=== PATIENT | male | born 1985 | race Caucasian/White ===

== ENCOUNTER 2021-04-11 12:04 | Observation (INO) | payer OTHER, SELFPAY ==
[2021-04-11] VITALS (10 sets, daily range): BP systolic 104–176; BP diastolic 51–90; PULSE 77–127; RESP 18–26; TEMP 36.6–37.6; O2SAT 92–98; BMI 40.0; BMI 71.4; BMI 40.1
--- NOTE | 2021-04-11 12:20 | HMH.EDGENADL ---
ED Disposition Clinical Impression: Hyperglycemia Community acquired pneumonia Qualifiers: Laterality: left Lung location: unspecified part of lung Qualified Code(s): J18.9 - Pneumonia, unspecified organism Disposition: Admitted as Observation Condition on Discharge: Fair Referrals: Provider,Referral, [Primary Care Provider] - - Critical Care Critical Care Time: No Attestation: On 04/11/21, the high probability of a clinically significant, sudden or life threatening deterioration of the following system(s) required my full and direct attention, intervention and personal management. The time I documented below is in addition to time spent performing reported procedures but includes the following listed in this critical care notation. Medical Decision Making - Larry Inquiry Pt receiving controlled substance: Yes Larry was queried for this patient: Yes Risks and benefits of using a controlled substance: were not discussed with pt by me Vital Signs: 04/11/21 12:04 04/11/21 12:41 04/11/21 13:26 Temperature 97.9 F Temperature Source Oral Pulse Rate 107 H 106 H Pulse Rate [Right] 122 H Respiratory Rate 26 H 19 18 Blood Pressure 144/85 H 109/51 L Blood Pressure [Right Arm] 176/90 H Blood Pressure Mean [Right Arm] 118 Blood Pressure Source Blood Pressure Position 02 Sat by Pulse Oximetry 94 L 94 L 94 L Oxygen Delivery Method Room Air Room Air Room Air 04/11/21 15:01 04/11/21 15:54 Temperature Temperature Source Pulse Rate 115 H 121 H Pulse Rate [Right] Respiratory Rate 20 18 Blood Pressure 104/68 L 109/73 L Blood Pressure [Right Arm] Blood Pressure Mean [Right Arm] Blood Pressure Source Automatic Cuff Blood Pressure Position Sitting 02 Sat by Pulse Oximetry 92 L 93 L Oxygen Delivery Method Room Air Room Air - Lab Data Lab Results 04/11/21 12:21: WBC 11.6 H, RBC 5.38, Hgb 17.0, Hct 48.3, MCV 89.9, MCH 31.6 H, MCHC 35.1, RDW 13.2, Plt Count 268, MPV 9.0, Neut % (Auto) 62.4, Lymph % (Auto) 30.5, [place] % (Auto) 4.3, Eos % (Auto) 2.0, Baso % (Auto) 0.7, Neut # (Auto) 7.3, Lymph # (Auto) 3.6, [place] # (Auto) 0.5, Eos # (Auto) 0.2, Baso # (Auto) 0.1 04/11/21 12:21: Sodium 136, Potassium 4.2, Chloride 99, Carbon Dioxide 27, Anion Gap 14.2, BUN 13, Creatinine 1.00, Estimated Creat Clear 197, Estimated GFR 86, Est GFR ( Amer) 103, Glucose 257 H, Calcium 9.0, Total Bilirubin 1.1, AST 25, ALT 29, Alkaline Phosphatase 90, Troponin I < 0.01, Total Protein 8.4 H, Albumin 4.7, Globulin 3.7 H, Albumin/Globulin Ratio 1.3 04/11/21 12:21: Lipase 51 04/11/21 15:40: Troponin I < 0.01 04/11/21 15:41: Lactate 2.5 H 04/11/21 15:42: Chlamy pneumoniae PCR Not detected, Adenovirus (PCR) Not detected, B. pertussis DNA (PCR) Not detected, Coronavirus OC43 (PCR) Not detected, Coronavirus HKU1 (PCR) Not detected, Coronavirus 229E (PCR) Not detected, SARS-CoV-2 (PCR) Not detected, Coronavirus NL63 (PCR) Not detected, Human Metapneumovir PCR Not detected, Influenza A (H1) PCR Not detected, Influ A (H1N1/09) PCR Not detected, Influenza A (H3) PCR Not detected, Influenza Type A (PCR) Not detected, Influenza Type B (PCR) Not detected, M. pneumoniae (PCR) Not detected, Parainfluenza 1 (PCR) Not detected, Parainfluenza 2 (PCR) Not detected, Parainfluenza 3 (PCR) Not detected, Parainfluenza 4 (PCR) Not detected, RSV (PCR) Not detected, Entero/Rhino (PCR) Not detected Result diagrams: 04/11/21 12:21 04/11/21 12:21 Orders (Tests/Meds): ED MEDICATIONS Generic Name Dose Route Start Last Admin Trade Name Freq PRN Reason Stop Dose Admin Ceftriaxone Sodium 1 gm/ 50 mls @ 100 mls/hr 04/11/21 15:30 04/11/21 15:49 Sodium Chloride IV 04/25/21 15:29 100 mls/hr Q24H JENA Administration Protocol Azithromycin 500 mg/ Sodium 250 mls @ 250 mls/hr 04/11/21 15:30 04/11/21 16:41 Chloride IV 04/25/21 15:29 250 mls/hr Q24H JENA Administration Protocol Discontinued Medications Generic
--- NOTE | 2021-04-11 12:23 | CT_ITS ---
PROCEDURE INFORMATION: Exam: CTA Chest With Contrast Exam date and time: 04/11/2021 12:23 PM Age: 35 years old Clinical indication: Patient HX: Acute onset of shortness of breath. ; Additional info: Sudden onset of SOA TECHNIQUE: Imaging protocol: Computed tomographic angiography of the chest with contrast. 3D rendering (Not supervised by radiologist): MIP and/or 3D reconstructed images were created by the technologist. Radiation optimization: All CT scans at this facility use at least one of these dose optimization techniques: automated exposure control; mA and/or kV adjustment per patient size (includes targeted exams where dose is matched to clinical indication); or iterative reconstruction. Contrast material: ISOVUE 370; Contrast volume: 70 ml; Contrast route: INTRAVENOUS (IV); COMPARISON: No relevant prior studies available. FINDINGS: Pulmonary arteries: Negative for acute pulmonary embolism. Aorta: Unremarkable. No aortic aneurysm. No aortic dissection. Lungs: Patchy densities in the left infrahilar region and posterior left lung base. Likely pneumonia, recommend clinical correlation and follow-up to resolution. Pleural spaces: Unremarkable. No pneumothorax. No pleural effusion. Heart: Unremarkable. No cardiomegaly. No pericardial effusion. Lymph nodes: Unremarkable. No enlarged lymph nodes. Bones/joints: Unremarkable. No acute fracture. Soft tissues: Unremarkable. IMPRESSION: 1. Negative for acute pulmonary embolism. 2. Patchy densities in the left infrahilar region and posterior left lung base. Likely pneumonia, recommend clinical correlation and follow-up to resolution.
--- NOTE | 2021-04-11 12:25 | ECG_ITS ---
APPROVED REPORT Exam: Resting ECG HR:104 bpm ECG Measurements Heart Rate 104 AXES WI 156 P 44 QRSd 84 QRS 84 QT 314 T 26 QTc 412 Conclusion Sinus tachycardia Otherwise normal ECG Electronically signed by : Alejo Hartley, 04/14/2021 17:51:24
[2021-04-11 12:31] LABS: Basophils # 0.1 K/mm3 (0-0.2); Basophils % 0.7 % (0.1-2.0); Eosinophils # 0.2 K/mm3 (0.0-0.4); Hematocrit 48.3 % (42.0-52.0); Lymphocytes # 3.6 K/mm3 (0.7-4.5); Lymphocytes % 30.5 % (10-50); Mean Corpuscular HGB Conc 35.1 g/dL (31.8-35.4); Mean Corpuscular Hemoglobin 31.6 pg (27.0-31.2); Mean Corpuscular Volume 89.9 fl (80-94); Monocytes # 0.5 K/mm3 (0.1-1.0); Monocytes % 4.3 % (1.7-9.3); Neutrophils # 7.3 K/mm3 (1.8-7.8); Neutrophils % 62.4 % (37.0-80.0); Platelet Count 268 K/mm3 (142-424); Red Blood Count 5.38 M/mm3 (4.60-6.20); Red Cell Distribution Width 13.2 % (11.5-17.5); White Blood Count 11.6 K/mm3 (4.8-10.8)
[2021-04-11 12:42] LABS: Lipase 51 U/L (23-300)
--- NOTE | 2021-04-11 12:58 | PC.NURSE ---
lab at bedside
[2021-04-11 13:32] LABS: Alanine Aminotransferase 29 U/L (12-78); Albumin Level 4.7 g/dl (3.5-5.0); Albumin/Globulin Ratio 1.3 (1.1-1.8); Alkaline Phosphatase 90 U/L (38-126); Anion Gap 14.2 mEq/L (5-15); Aspartate Amino Transferase 25 U/L (17-59); Bilirubin,Total 1.1 mg/dl (0.2-1.3); Blood Urea Nitrogen 13 mg/dl (9-20); Carbon Dioxide 27 mmol/L (22.0-30.0); Chloride 99 mmol/L (98-107); Creatinine Clearance Estimated 197 mL/min (50-200); Estimated Glomerular Filt Rate 86 ml/min (>60); GFR (African American) 103 ML/MIN (>60); Globulin 3.7 g/dL (1.3-3.2); Glucose 257 mg/dl (74-100); Potassium 4.2 mmoL/L (3.5-5.1); Sodium 136 mmol/L (136-145); Total Protein,Serum 8.4 g/dl (6.3-8.2)
[2021-04-11 13:46] LABS: Troponin I < 0.01 ng/ml (0.00-0.034)
--- NOTE | 2021-04-11 13:52 | PC.NURSE ---
pt to rad
[2021-04-11 15:56] LABS: Adenovirus,PCR Not Detected (NotDetected); Bordetella Pertussis Not Detected (NotDetected); Chlamydophila Pneumoniae, PCR Not Detected (NotDetected); Coronavirus 19, PCR Not Detected (NotDetected); Coronavirus 229E Not Detected (NotDetected); Coronavirus NL63 Not Detected (NotDetected); Coronavirus OC43 Not Detected (NotDetected); Coronovirus HKU1,PCR Not Detected (NotDetected); Human Metapneumovirus Not Detected (NotDetected); Influenza A, PCR Not Detected (NotDetected); Influenza AH1, 2009 Not Detected (NotDetected); Influenza AH1, PCR Not Detected (NotDetected); Influenza AH3,PCR Not Detected (NotDetected); Influenza B, PCR Not Detected (NotDetected); Mycoplasma Pneumoniae, PCR Not Detected (NotDetected); Parainfluenza 1, PCR Not Detected (NotDetected); Parainfluenza 2, PCR Not Detected (NotDetected); Parainfluenza 3, PCR Not Detected (NotDetected); Parainfluenza 4, PCR Not Detected (NotDetected); Respiratory Syncytial Virus Not Detected (NotDetected); Rhinovirus/Enterovirus Not Detected (NotDetected)
[2021-04-11 16:12] LABS: Lactic Acid 2.5 mmol/L (0.7-2.1)
[2021-04-11 16:19] LABS: Troponin I < 0.01 ng/ml (0.00-0.034)
--- NOTE | 2021-04-11 17:16 | PC.NURSE ---
PATIENT LEFT WITH EMS TO [facility] FOR A CT OF HIS ABDOMEN. PT WILL RETURN BACK TO [facility] ED
--- NOTE | 2021-04-11 18:54 | PC.NURSE ---
Pt returned from [facility] and is back in his room.
--- NOTE | 2021-04-11 18:58 | PC.NURSE ---
PATIENT RETURNED FROM [facility]IA EMS FROM CT SCAN
[2021-04-11 19:50] LABS: Reflex Lactic Add Lactic Reflex
--- NOTE | 2021-04-11 20:39 | PC.NURSE ---
patient up to floor @ 20:24 .
[2021-04-11 20:57] LABS: Troponin I < 0.01 ng/ml (0.00-0.034)
[2021-04-11 23:18] LABS: Lactic Acid 2.1 mmol/L (0.7-2.1)
[2021-04-12] VITALS (8 sets, daily range): BP systolic 120–152; BP diastolic 60–90; PULSE 84–132; RESP 16–24; TEMP 37.2–37.7; O2SAT 90–95; BMI 40.1; BMI 40.3
[2021-04-12 05:51] LABS: POC Glucose,Bedside 255 (70-110)
--- NOTE | 2021-04-12 05:56 | PC.NURSE ---
A/O x4. pt dose not complain of SOB or difficulty breathing. was paged and ordered a sepsis bolus to be given due to tachycardia and lactic 2.1, and he would reassess during morning rounds. Total of 4 L has been administered. Lungs sound clear, stats are 98% on room air. Pt has rested well this shift. Able to make needs known to staff, call light within reach.
--- NOTE | 2021-04-12 07:11 | HMH.PHAVTE ---
[facility] Pharmacy VTE Monitoring - Patient Demographics Admission date: 04/11/21 Report Date: 04/12/21 Time: 07:11 Allergies/Adverse Reactions: Patient Allergies No Known Allergies Allergy (Verified 04/11/21 12:23) Height: 1.83 m Weight: 134.521 kg Patient Problems: Current Active Problems Community acquired pneumonia (Acute) Hyperglycemia (Acute) - VTE Risk Labs: VTE Related Lab Results Hgb 17.0 g/dL (14.1-18.0) 04/11/21 12:21 Hct 48.3 % (42.0-52.0) 04/11/21 12:21 Plt Count 268 K/mm3 (142-424) 04/11/21 12:21 BUN 13 mg/dl (9-20) 04/11/21 12:21 Creatinine 1.00 mg/dl (0.66-1.25) 04/11/21 12:21 Estimated Creat Clear 197 mL/min (50-200) 04/11/21 12:21 - Prophylaxis VTE Prophylaxis Ordered?: Yes Types of VTE Prophylaxis: TEDS Knee High Location of Applied Device: Bilateral Lower Extremeties
--- NOTE | 2021-04-12 08:48 | HMH.HP ---
*Admission Date: 04/11/21 <PhanBrookeSadaf 04/12/21 09:00> *Chief complaint: Shortness of breath <Sadaf Chisholm 04/12/21 09:00> *History of present illness: Mr. Weir is a 35-year-old male who is relatively healthy. He has had hypertension in the past but takes no medication at all at present. Sudden onset of shortness of breath yesterday and presented to [facility] emergency room. He describes intermittent sharp chest pains for the last few weeks that did not last but a few seconds. He is not experiencing this at present but it does hurt currently to take a deep breath and sometimes with movement. He is most comfortable lying on his right side. With evaluation in the emergency room he had a CT of the chest which showed no acute pulmonary embolism. He had bilateral densities in the left infrahilar region and posterior left lung base. Laboratory data showed a white blood cell count 11,600. Blood chemistries show normal electrolytes with a BUN of 13 and creatinine of 1. Blood sugar is 257. Troponin I's were 0.01. Lactate was elevated at 4 and 1 later repeated was 2.1. He treated for sepsis and currently is receiving IV resuscitation. He has had a low-grade fever he has been tachycardic with a heart rate 132 and is 120 this a.m. he has received greater than 5000 mL of IV fluids since admission. Currently he feels he is breathing better. O2 sats are 93% on room air. He states he did sleep some. He did not fill like eating much this a.m. <Sadaf Chisholm 04/12/21 09:00> [facility] History Medical History: Reports:: Diabetes Mellitus Type 2, Hypertension Denies:: Cancer, Internal Pacemaker, MRSA <Sadaf Chisholm 04/12/21 09:00> *Have you ever received a pneumonia vaccine?: No <Sadaf Chisholm 04/12/21 09:00> *Have you received a flu vaccine this season?: No <Sadaf Chisholm 04/12/21 09:00> Other Surgeries: Yes: No Previous Surgery. No: Pacemaker <Sadaf Chisholm 04/12/21 09:00> Amputation: No <Sadaf Chisholm 04/12/21 09:00> - *Social History Last grade of school completed: Some college <ChisholmSadaf 04/12/21 09:00> Smoking Status: Never smoker <ChisholmSadaf 04/12/21 09:00> Alcohol Intake: never <ChisholmSadaf 04/12/21 09:00> *Occupational Status:: employed <Chisholm,Sadaf 04/12/21 09:00> Housing: house <Chisholm,Sadaf 04/12/21 09:00> Household Members: spouse <ChisholmSadaf 04/12/21 09:00> *Travel in the last 8 weeks: None <PhanSadaf 04/12/21 09:00> Family Hx:: Cancer, Diabetes, Heart Attack, Hypertension, Kidney Disease, Stroke <PhanSadaf 04/12/21 09:00> Review of Systems - Constitutional Reports fever(s) <PhanSadaf 04/12/21 09:00> - Eyes Denies change in vision <PhanSadaf 04/12/21 09:00> - ENT Denies dizziness, Denies ear discharge, Denies ear pain, Denies headache(s), Denies sore throat <PhanSadaf 04/12/21 09:00> - *Cardiovascular Reports chest pain, Reports chest pain with activity, Reports shortness of breath, Denies irregular heart rhythm, Denies leg swelling <PhanSadaf 04/12/21 09:00> - *Respiratory Reports shortness of breath, Reports pain on inspiration, Denies chest congestion, Denies cough, Denies coughing up blood <Sadaf Chisholm 04/12/21 09:00> - *Gastrointestinal Reports nausea, Denies abdominal pain, Denies constipation, Denies loose stools, Denies vomiting <PhanSadaf 04/12/21 09:00> - *Genitourinary Denies difficulty urinating <Sadaf Chisholm 04/12/21 09:00> - *Musculoskeletal Denies abnormal walking <Sadaf Chisholm 04/12/21 09:00> - *Neurologic Denies abnormal speech, Denies seizure-like activity, Denies unsteadiness, Denies dizziness, Denies lack of coordination <Sadaf Chisholm - 04/12/21 09:00> Meds Home Medications Medication Instructions Recorded Confirmed Type No Known Home Medications 04/11/21 04/11/21 History <Jax Herron - 04/12/21 09:10> Allergies Allergy/AdvR
[2021-04-12 16:12] LABS: POC Glucose,Bedside 221 (70-110)
[2021-04-12 16:12] LABS: POC Glucose,Bedside 280 (70-110)
[2021-04-12 17:48] LABS: POC Glucose,Bedside 225 (70-110)
--- NOTE | 2021-04-12 18:07 | PC.NURSE ---
PT IS RESTING IN BED ON HIS RT SIDE. RECEIVED TYLENOL FOR DISCOMFORT IN HIS LT SIDE WHICH PT STATED REALLY HELPED. PT HAS BEEN AMBULATING TO THE BATHROOM INDEPENDENTLY. TOLERATED SITTING UP IN THE CHAIR FOR A FEW HOURS THIS MORNING. HR HAS BEEN ELEVATED IN THE 120'S T/O THE SHIFT. PT HAS REQUIRED INSULIN FOR EVERY MEAL. ACCORDING TO PT HE IS TYPE 2 DIABETIC BUT STATES HE DOES NOT TAKE ANYTHING AT HOME FOR HIS DIABETES AND HAS NOT FOLLOWED UP WITH A PHYSICIAN FOR SOMETIME. LUNG SOUNDS DIMINISHED. ABDOMEN SOFT WITH ACTIVE BOWEL SOUNDS. NO BOWEL MOVEMENT THIS SHIFT. ROOM AIR SATURATION HAS MAINTAINED 92-95% T/O THE SHIFT. WILL CONTINUE TO MONITOR.
[2021-04-12 20:25] LABS: POC Glucose,Bedside 238 (70-110)
[2021-04-13] VITALS (11 sets, daily range): BP systolic 119–139; BP diastolic 61–79; PULSE 110–138; RESP 18–24; TEMP 37.2–39.5; O2SAT 88–94; BMI 40.2
--- NOTE | 2021-04-13 04:29 | PC.NURSE ---
pt is independent with ambulation. pt had a temp 103 and prn med given was 99.6 on recheck. pt has not stated any pain this shift. call light in reach. will continue to monitor
[2021-04-13 05:57] LABS: POC Glucose,Bedside 206 (70-110)
[2021-04-13 06:22] LABS: Basophils % 0.3 % (0.1-2.0); Eosinophils # 0.1 K/mm3 (0.0-0.4); Eosinophils % 0.7 % (0.1-12.0); Hematocrit 38.7 % (42.0-52.0); Hemoglobin 13.9 g/dL (14.1-18.0); Lymphocytes # 1.8 K/mm3 (0.7-4.5); Mean Corpuscular HGB Conc 35.8 g/dL (31.8-35.4); Mean Corpuscular Hemoglobin 32.1 pg (27.0-31.2); Mean Corpuscular Volume 89.7 fl (80-94); Mean Platelet Volume 8.8 fl (7.4-10.4); Monocytes # 0.7 K/mm3 (0.1-1.0); Monocytes % 5.4 % (1.7-9.3); Neutrophils # 10.9 K/mm3 (1.8-7.8); Neutrophils % 80.6 % (37.0-80.0); Platelet Count 209 K/mm3 (142-424); Red Blood Count 4.32 M/mm3 (4.60-6.20); Red Cell Distribution Width 13.3 % (11.5-17.5); White Blood Count 13.5 K/mm3 (4.8-10.8)
[2021-04-13 06:25] LABS: Chloride 99 mmol/L (98-107)
[2021-04-13 06:26] LABS: Potassium 4.1 mmoL/L (3.5-5.1); Sodium 134 mmol/L (136-145)
[2021-04-13 06:29] LABS: Anion Gap 13.1 mEq/L (5-15); Blood Urea Nitrogen 7 mg/dl (9-20); Calcium 8.9 mg/dl (8.4-10.2); Carbon Dioxide 26 mmol/L (22.0-30.0); Creatinine Clearance Estimated 283 mL/min (50-200); Estimated Glomerular Filt Rate 129 ml/min (>60); GFR (African American) 156 ML/MIN (>60); Glucose 214 mg/dl (74-100)
--- NOTE | 2021-04-13 08:16 | HMH.ACPN2 ---
<Sadaf Chisholm - Last Filed: 04/13/21 09:07> Internal Medicine - PN: Subj *Date: 04/13/21 *Time: 09:07 Interval history: Patient states he had a rough night last night. He slept at intervals. Temperature went up to 103. It is now 99.8. He is short of breath with any exertion. He has had no cough. He feels duo nebs to helps. He said up in a chair yesterday. With any movement he has discomfort in the left side of his lower chest. Tylenol helps. He is eating less. He is voiding QS. Laboratory data this morning show white blood cell count of 13,500 with a hemoglobin of 13.9 hematocrit of 38.7. Chemistries show sodium of 134 and potassium of 4.1. Blood sugars remain elevated requiring insulin coverage. Blood culture results are still pending. Exam Vital signs and Labs for Last 24 Hours: Temp Pulse Resp BP Pulse Ox 99.8 F H 118 H 24 139/79 90 L 04/13/21 04:34 04/13/21 06:09 04/13/21 04:34 04/13/21 04:34 04/13/21 04:34 Laboratory Results - last 24 hr 04/11/21 20:39: POC Glucose 221 H 04/12/21 11:37: POC Glucose 280 H 04/12/21 16:12: POC Glucose 225 H 04/12/21 20:18: POC Glucose 238 H 04/13/21 05:30: WBC 13.5 H, RBC 4.32 L, Hgb 13.9 L, Hct 38.7 L, MCV 89.7, MCH 32.1 H, MCHC 35.8 H, RDW 13.3, Plt Count 209, MPV 8.8, Neut % (Auto) 80.6 H, Lymph % (Auto) 13.0, Webb % (Auto) 5.4, Eos % (Auto) 0.7, Baso % (Auto) 0.3, Neut # (Auto) 10.9 H, Lymph # (Auto) 1.8, Webb # (Auto) 0.7, Eos # (Auto) 0.1, Baso # (Auto) 0.0 04/13/21 05:30: Sodium 134 L, Potassium 4.1, Chloride 99, Carbon Dioxide 26, Anion Gap 13.1, BUN 7 L D, Creatinine 0.70 D, Estimated Creat Clear 283, Estimated GFR 129, Est GFR ( Amer) 156 D, Glucose 214 H, Calcium 8.9 04/13/21 05:49: POC Glucose 206 H I & O for Last 24 hours: Intake & Output 04/10/21 04/11/21 04/12/21 04/13/21 11:59 11:59 11:59 11:59 Intake Total 780 / 780 780 / 780 Balance 780 / 780 780 / 780 Weight 297 lb 9.985 oz 297 lb - Constitutional no acute distress - *Routine Respiratory Exam Present: diminished air movement (In bilateral bases) - *Routine Cardiovascular Exam Present: RRR, tachycardia (Heart rate is 130 this morning) - *Routine Abdominal Exam Present: soft, normoactive bowel sounds. Absent: tenderness, distended - *Routine Extremities Exam Present: pulses intact. Absent: edema, calf tenderness - *Routine Neurological Exam Present: alert, oriented X3 Assessment and Plan (1) Community acquired pneumonia Status: Acute Qualifiers: Laterality: left Lung location: unspecified part of lung Qualified Code(s): J18.9 - Pneumonia, unspecified organism Category: Medical Code(s): J18.9 - Pneumonia, unspecified organism (2) DM2 (diabetes mellitus, type 2) Status: Acute Category: Medical Code(s): E11.9 - Type 2 diabetes mellitus without complications (3) HTN (hypertension) Status: Acute Category: Medical Code(s): I10 - Essential (primary) hypertension (4) Non morbid obesity Status: Acute Category: Medical Code(s): E66.9 - Obesity, unspecified (5) Non-compliance Status: Acute Category: Medical Code(s): Z91.19 - Patient's noncompliance with other medical treatment and regimen (6) Hyperglycemia Status: Acute Category: Medical Code(s): R73.9 - Hyperglycemia, unspecified - Assessment and plan all Dx Assessment and Plan for all problems:: Patient continues with Rocephin and Zithromax and duo nebs. Will consult pulmonology. <Jax Herron - Last Filed: 04/13/21 09:18> Internal Medicine - PN: Subj *Date: 04/13/21 *Time: 09:17 Exam Vital signs and Labs for Last 24 Hours: Temp Pulse Resp BP Pulse Ox 98.9 F 127 H 24 126/79 91 L 04/13/21 08:00 04/13/21 08:00 04/13/21 08:00 04/13/21 08:00 04/13/21 08:00 Laboratory Results - last 24 hr 04/11/21 20:39: POC Glucose 221 H 04/12/21 11:37: POC Glucose 280 H 04/12/21 16:12: POC Glucose 225 H 04/12/21 20:18: POC Glucose
--- NOTE | 2021-04-13 09:18 | XR_ITS ---
PROCEDURE: XR CHEST 2V CLINICAL HISTORY: f/u pneumonia COMPARISON: CT CT ANGIO CHEST from 04/11/2021 FINDINGS: Heart size normal. Probable tiny right pleural effusion. No pneumothorax. Left basilar consolidation persists with some patchy right basilar atelectasis versus less likely infiltrate. Repeat chest CT in 1 month recommended to exclude any underlying mass. No acute bony abnormalities. IMPRESSION: Persistent left basilar consolidation may represent some residual pneumonia but repeat chest CT in 1 month recommended to exclude any underlying mass. Some patchy right basilar atelectasis versus less likely infiltrate. Probable tiny right pleural effusion. Dictated by: Josh Nayak MD 04/13/2021 14:19 Josh Nayak MD in [place] 04/13/2021 14:19
[2021-04-13 10:59] LABS: POC Glucose,Bedside 227 (70-110)
--- NOTE | 2021-04-13 15:50 | PC.NURSE ---
SPUTUM INDUCTION:PT GIVEN SALINE NEB AND ENCOURGED TO COUGH. INSTRUCTED TO CONTINUE TO TRY TO GET SAMPLE IF POSSIBLE. CUP LEFT AT BEDSIDE.
--- NOTE | 2021-04-13 16:43 | P.CONS_ITS ---
*Admission Date: 04/11/21 [facility] History Medical History: Reports:: Diabetes Mellitus Type 2, Hypertension Denies:: Cancer, Internal Pacemaker, MRSA *Have you ever received a pneumonia vaccine?: No *Have you received a flu vaccine this season?: No Other Surgeries: Yes: No Previous Surgery. No: Pacemaker Amputation: No - *Social History Last grade of school completed: Some college Smoking Status: Never smoker Alcohol Intake: never *Occupational Status:: employed Housing: house Household Members: spouse *Travel in the last 8 weeks: None Family Hx:: Cancer, Diabetes, Heart Attack, Hypertension, Kidney Disease, Stroke Meds Home Medications Medication Instructions Recorded Confirmed Type No Known Home Medications 04/11/21 04/11/21 History Allergies Allergy/AdvReac Type Severity Reaction Status Date / Time No Known Allergies Allergy Verified 04/11/21 12:23 Internal Medicine - CN: Reslt - Labs CBC & Chem 7: 04/13/21 05:30 04/13/21 05:30 Labs: Short CBC 04/13/21 Range/Units 05:30 WBC 13.5 H (4.8-10.8) K/mm3 Hgb 13.9 L (14.1-18.0) g/dL Hct 38.7 L (42.0-52.0) % Plt Count 209 (142-424) K/mm3 BMP 04/13/21 05:30 Sodium 134 L Potassium 4.1 Chloride 99 Carbon Dioxide 26 BUN 7 L D Creatinine 0.70 D Glucose 214 H Calcium 8.9 Assessment and Plan (1) Community acquired pneumonia Status: Acute Qualifiers: Laterality: left Lung location: unspecified part of lung Qualified Code(s): J18.9 - Pneumonia, unspecified organism Category: Medical Code(s): J18.9 - Pneumonia, unspecified organism (2) DM2 (diabetes mellitus, type 2) Status: Acute Category: Medical Code(s): E11.9 - Type 2 diabetes mellitus without complications (3) HTN (hypertension) Status: Acute Category: Medical Code(s): I10 - Essential (primary) hypertension (4) Non morbid obesity Status: Acute Category: Medical Code(s): E66.9 - Obesity, unspecified (5) Non-compliance Status: Acute Category: Medical Code(s): Z91.19 - Patient's noncompliance with other medical treatment and regimen (6) Hyperglycemia Status: Acute Category: Medical Code(s): R73.9 - Hyperglycemia, unspecified - Assessment and plan all Dx Assessment and Plan for all problems:: #Community-acquired pneumonia: CTA showed no evidence of pulmonary embolism, however showed bilateral airspace disease with interstitial infiltrates. Comprehensive respiratory viral panel resulted negative. Hemodynamically stable. Lactate normalized. Neutrophilic leukocytosis. Patient was initially ceftriaxone azithromycin along with DuoNebs every 6 hours scheduled. Blood cultures pending. Plan: - -Continue ceftriaxone meds for community-acquired pneumonia. -Follow urine strep pneumonia & Legionella antigens
[2021-04-13 17:09] LABS: C-Reactive Protein 161.5 mg/L (0-4)
--- NOTE | 2021-04-13 17:44 | HMH.PULMCON ---
*Admission Date: 04/11/21 *Reason for consult:: Acute hypoxic respiratory failure, pleuritic chest pain *History of present illness: Mr. Millard is 35-year-old male never smoker no prior respiratory complaints presented to the hospital complaining of epigastric pain for the last week gradually getting worse. Pain worsens with deep inspiration and coughing and relieved by taking rest. Patient also complains of acid reflux disease. Denies any families of autoimmune disorders. ILD review of systems negative. [facility] History Medical History: Reports:: Diabetes Mellitus Type 2, Hypertension Denies:: Cancer, Internal Pacemaker, MRSA *Have you ever received a pneumonia vaccine?: No *Have you received a flu vaccine this season?: No Other Surgeries: Yes: No Previous Surgery. No: Pacemaker Amputation: No - *Social History Last grade of school completed: Some college Smoking Status: Never smoker Alcohol Intake: never *Occupational Status:: employed Housing: house Household Members: spouse *Travel in the last 8 weeks: None Family Hx:: Cancer, Diabetes, Heart Attack, Hypertension, Kidney Disease, Stroke ROS - Cons Denies chills, Denies fatigue, Denies fever(s) - ENT Denies difficulty swallowing - Card Reports shortness of breath, Reports shortness of breath with activity - Resp Respiratory: Denies chest congestion, Reports dyspnea on exertion, Denies excessive phlegm production, Denies coughing up blood, Reports pain on inspiration, Reports pain with cough, Reports pain with breathing, Denies snoring, Denies stridor, Denies wheezing - GI Gastrointestingal: Reports: dyspepsia - [place] Musculoskeletal: Reports system reviewed and no additional complaints, except as docu Meds Home Medications Medication Instructions Recorded Confirmed Type No Known Home Medications 04/11/21 04/11/21 History Allergies Allergy/AdvReac Type Severity Reaction Status Date / Time No Known Allergies Allergy Verified 04/11/21 12:23 Exam - Constitutional Constitutional:: Present: no acute distress, comfortable - HENMT Exam HENMT: Present: normocephalic, atraumatic - Eye Exam Eyes:: Present: normal appearance both eyes and related structures - Neck Exam Neck:: Present: normal visual inspection - Respiratory Exam Respiratory:: Present: able to speak in complete sentences, no respiratory distress, normal respiratory effort. Absent: crackles, wheezing, pleural rub - Cardiovascular Exam Cardiac:: Present: S1, S2 - GI Exam GI:: Present: soft - Skin Exam Skin: Present: warm, no rash, dry - Neurological Exam Neurological: Present: alert, awake, normal cognition - Extremities Exam Extremities: Present: no cyanosis, no clubbing, no edema Internal Medicine - CN: Reslt - Labs CBC & Chem 7: 04/13/21 05:30 04/13/21 05:30 Labs: Short CBC 04/13/21 Range/Units 05:30 WBC 13.5 H (4.8-10.8) K/mm3 Hgb 13.9 L (14.1-18.0) g/dL Hct 38.7 L (42.0-52.0) % Plt Count 209 (142-424) K/mm3 BMP 04/13/21 05:30 Sodium 134 L Potassium 4.1 Chloride 99 Carbon Dioxide 26 BUN 7 L D Creatinine 0.70 D Glucose 214 H Calcium 8.9 Assessment and Plan (1) Community acquired pneumonia Status: Acute Qualifiers: Laterality: left Lung location: unspecified part of lung Qualified Code(s): J18.9 - Pneumonia, unspecified organism Category: Medical Code(s): J18.9 - Pneumonia, unspecified organism (2) DM2 (diabetes mellitus, type 2) Status: Acute Category: Medical Code(s): E11.9 - Type 2 diabetes mellitus without complications (3) HTN (hypertension) Status: Acute Category: Medical Code(s): I10 - Essential (primary) hypertension (4) Non morbid obesity Status: Acute Category: Medical Code(s): E66.9 - Obesity, unspecified (5) Non-compliance Status: Acute Category: Medical Code(s): Z91.19 - Patient's noncompliance with other medical treatment and regimen
[2021-04-13 18:46] LABS: C-Reactive Protein 153.4 mg/L (0-4)
[2021-04-13 20:35] LABS: POC Glucose,Bedside 225 (70-110)
[2021-04-13 20:35] LABS: POC Glucose,Bedside 268 (70-110)
[2021-04-14] VITALS: BP 130/79; PULSE 128; RESP 18; TEMP 37.9; O2SAT 94
--- NOTE | 2021-04-14 03:42 | PC.NURSE ---
Patient has been alert and oriented, he is independent. Lung sounds are still diminished and sputum has not been successful in collecting during shift. He has remained tachycardic during the shift, has ran low grade fevers throughout the night, 100.2 and 100.3. Patient requested Tylenol twice during those times. Patient had complaints of not feeling well around 0130, patient's vitals remained at baseline for him, temperature had decreased to 99.6 at that time, he had no further complaints upon followup. Call light is within reach, bed in lowest position.
[2021-04-14 04:00] VITALS: BP 141/86; PULSE 118; RESP 17; TEMP 37.5; O2SAT 94
[2021-04-14 05:08] VITALS: BMI 39.1
[2021-04-14 06:27] LABS: Basophils % 0.3 % (0.1-2.0); Eosinophils # 0.2 K/mm3 (0.0-0.4); Eosinophils % 1.9 % (0.1-12.0); Hematocrit 37.7 % (42.0-52.0); Hemoglobin 13.2 g/dL (14.1-18.0); Lymphocytes # 1.7 K/mm3 (0.7-4.5); Lymphocytes % 14.9 % (10-50); Mean Corpuscular HGB Conc 35.1 g/dL (31.8-35.4); Mean Corpuscular Hemoglobin 31.9 pg (27.0-31.2); Mean Platelet Volume 8.4 fl (7.4-10.4); Monocytes # 0.7 K/mm3 (0.1-1.0); Monocytes % 6.4 % (1.7-9.3); Neutrophils # 8.5 K/mm3 (1.8-7.8); Neutrophils % 76.5 % (37.0-80.0); Platelet Count 228 K/mm3 (142-424); Red Blood Count 4.15 M/mm3 (4.60-6.20); Red Cell Distribution Width 13.5 % (11.5-17.5); White Blood Count 11.1 K/mm3 (4.8-10.8)
[2021-04-14 06:31] LABS: Chloride 100 mmol/L (98-107)
[2021-04-14 06:32] LABS: Potassium 4.1 mmoL/L (3.5-5.1); Sodium 137 mmol/L (136-145)
[2021-04-14 06:34] LABS: Blood Urea Nitrogen 8 mg/dl (9-20)
[2021-04-14 06:35] LABS: Anion Gap 17.1 mEq/L (5-15); Calcium 8.9 mg/dl (8.4-10.2); Carbon Dioxide 24 mmol/L (22.0-30.0); Creatinine Clearance Estimated 276 mL/min (50-200); Estimated Glomerular Filt Rate 129 ml/min (>60); GFR (African American) 156 ML/MIN (>60); Glucose 216 mg/dl (74-100)
[2021-04-14 06:40] VITALS: PULSE 133; PULSE 134; O2SAT 90
[2021-04-14 08:00] VITALS: BP 162/81; PULSE 133; RESP 18; TEMP 37.3; O2SAT 94
--- NOTE | 2021-04-14 08:11 | HMH.ACPN2 ---
<Breanna Blevins - Last Filed: 04/14/21 08:11> Internal Medicine - PN: Subj *Date: 04/14/21 *Time: 08:11 Interval history: Patient states he feels about the same today. He gets short of breath with any exertion. He states he still cannot take a deep breath. He slept off and on throughout the night and is trying to eat some breakfast this morning. Exam Vital signs and Labs for Last 24 Hours: Temp Pulse Resp BP Pulse Ox 99.1 F 133 H 18 162/81 H 94 L 04/14/21 08:00 04/14/21 08:00 04/14/21 08:00 04/14/21 08:00 04/14/21 08:00 Laboratory Results - last 24 hr 04/13/21 05:30: C-Reactive Protein 161.5 H 04/13/21 10:52: POC Glucose 227 H 04/13/21 17:14: POC Glucose 268 H 04/13/21 18:20: C-Reactive Protein 153.4 H 04/13/21 20:25: POC Glucose 225 H 04/14/21 06:08: WBC 11.1 H, RBC 4.15 L, Hgb 13.2 L, Hct 37.7 L, MCV 91.0, MCH 31.9 H, MCHC 35.1, RDW 13.5, Plt Count 228, MPV 8.4, Neut % (Auto) 76.5, Lymph % (Auto) 14.9, [place] % (Auto) 6.4, Eos % (Auto) 1.9, Baso % (Auto) 0.3, Neut # (Auto) 8.5 H, Lymph # (Auto) 1.7, [place] # (Auto) 0.7, Eos # (Auto) 0.2, Baso # (Auto) 0.0 04/14/21 06:08: Sodium 137, Potassium 4.1, Chloride 100, Carbon Dioxide 24, Anion Gap 17.1 H, BUN 8 L, Creatinine 0.70, Estimated Creat Clear 276, Estimated GFR 129, Est GFR ( Amer) 156, Glucose 216 H, Calcium 8.9 I & O for Last 24 hours: Intake & Output 04/11/21 04/12/21 04/13/21 04/14/21 11:59 11:59 11:59 11:59 Intake Total 780 / 780 1500 / 1500 850 / 850 Output Total 300 / 300 400 / 400 Balance 780 / 780 1200 / 1200 450 / 450 Weight 297 lb 9.985 oz 297 lb 289 lb 2 oz Microbiology Reports for the Last 24 Hours: Microbiology 04/11/21 15:50 Blood Blood Culture - Preliminary NO GROWTH AFTER 48 HOURS 04/11/21 15:35 Blood Blood Culture - Preliminary NO GROWTH AFTER 48 HOURS - Constitutional no acute distress - *Routine Respiratory Exam Present: CTA bilaterally - *Routine Cardiovascular Exam Present: tachycardia - *Routine Abdominal Exam Present: soft, normoactive bowel sounds. Absent: tenderness - *Routine Extremities Exam Absent: cyanosis, clubbing, edema - *Routine Skin Exam Present: warm. Absent: rash - *Routine Neurological Exam Present: alert, oriented X3 Assessment and Plan (1) Community acquired pneumonia Status: Acute Qualifiers: Laterality: left Lung location: unspecified part of lung Qualified Code(s): J18.9 - Pneumonia, unspecified organism Category: Medical Code(s): J18.9 - Pneumonia, unspecified organism (2) DM2 (diabetes mellitus, type 2) Status: Acute Category: Medical Code(s): E11.9 - Type 2 diabetes mellitus without complications (3) HTN (hypertension) Status: Acute Category: Medical Code(s): I10 - Essential (primary) hypertension (4) Non morbid obesity Status: Acute Category: Medical Code(s): E66.9 - Obesity, unspecified (5) Non-compliance Status: Acute Category: Medical Code(s): Z91.19 - Patient's noncompliance with other medical treatment and regimen (6) Hyperglycemia Status: Acute Category: Medical Code(s): R73.9 - Hyperglycemia, unspecified - Assessment and plan all Dx Assessment and Plan for all problems:: We will continue antibiotics. Blood pressure and heart rate are still elevated. Will discuss further care with Dr. Herron. <Jax Herron - Last Filed: 04/14/21 09:01> Internal Medicine - PN: Subj *Date: 04/14/21 *Time: 09:00 Exam Vital signs and Labs for Last 24 Hours: Temp Pulse Resp BP Pulse Ox 99.1 F 133 H 18 162/81 H 94 L 04/14/21 08:00 04/14/21 08:00 04/14/21 08:00 04/14/21 08:00 04/14/21 08:00 Laboratory Results - last 24 hr 04/13/21 05:30: C-Reactive Protein 161.5 H 04/13/21 10:52: POC Glucose 227 H 04/13/21 17:14: POC Glucose 268 H 04/13/21 18:20: C-Reactive Protein 153.4 H 04/13/21 20:25: POC Glucose 225 H 04/14
--- NOTE | 2021-04-14 10:56 | HMH.PULMPN ---
Internal Medicine - PN: Subj *Date: 04/14/21 *Time: 10:59 Interval history: No acute respite events overnight. Patient continued to remain on room air. Denies any new complaints however still complains of pain with inspiration Exam - Constitutional Constitutional:: Present: no acute distress, comfortable - HENMT Exam HENMT: Present: normocephalic, atraumatic - Eye Exam Eyes:: Present: normal appearance both eyes and related structures - Neck Exam Neck:: Present: normal visual inspection - Respiratory Exam Respiratory:: Present: able to speak in complete sentences, normal breath sounds, no respiratory distress. Absent: crackles, rales, wheezing - Cardiovascular Exam Cardiac:: Present: S1, S2 - Skin Exam Skin: Present: warm, no rash, dry - Neurological Exam Neurological: Present: alert, awake, normal cognition - Extremities Exam Extremities: Present: no cyanosis, no clubbing, no edema Assessment and Plan (1) Community acquired pneumonia Status: Acute Qualifiers: Laterality: left Lung location: unspecified part of lung Qualified Code(s): J18.9 - Pneumonia, unspecified organism Category: Medical Code(s): J18.9 - Pneumonia, unspecified organism (2) DM2 (diabetes mellitus, type 2) Status: Acute Category: Medical Code(s): E11.9 - Type 2 diabetes mellitus without complications (3) HTN (hypertension) Status: Acute Category: Medical Code(s): I10 - Essential (primary) hypertension (4) Non morbid obesity Status: Acute Category: Medical Code(s): E66.9 - Obesity, unspecified (5) Non-compliance Status: Acute Category: Medical Code(s): Z91.19 - Patient's noncompliance with other medical treatment and regimen (6) Hyperglycemia Status: Acute Category: Medical Code(s): R73.9 - Hyperglycemia, unspecified - Assessment and plan all Dx Assessment and Plan for all problems:: # Community-acquired pneumonia: 35-year-old male never smoker presents hospital with worsening respiratory distress. He was admitted to the hospital concerning for worsening respiratory and was initiated on ceftriaxone azithromycin. Patient also complains of epigastric pain with deep inspiration and coughing. Even though this pain appears to be pleuritic the possibility of other sources including gastrointestinal and cardiac etiology cannot be completely ruled out, which are being evaluated by the primary team ILD ROS negative. No Family history of ILD / lupus CTA showed no evidence of pulmonary embolism, however showed bilateral airspace disease with interstitial infiltrates. Comprehensive respiratory viral panel resulted negative. Hemodynamically stable. Lactate normalized. Neutrophilic leukocytosis. Blood cultures pending. No sputum cultures available for review. CRP within normal limits at 0.9. Procalcitonin normal at 0.078 Plan: -Continue cefdinir and doxycycline for a total of 5 days -Ibuprofen as needed -PPI daily -Sputum induction with cultures -Follow urine strep pneumonia & Legionella antigens -Urine histoplasma antigen -F/U MARCELO -Continue Duo nebs Q6 hrs PRN #Thank you for involving pulmonary in this patient care. We'll follow the patient pulmonary clinic in 7 days
[2021-04-14 11:39] LABS: POC Glucose,Bedside 205 (70-110)
--- NOTE | 2021-04-16 10:56 | HMH.DCSUM ---
General - General Admission date:: 04/11/21 Discharge date: 04/14/21 HPI HPI: Mr. Weir is a 35-year-old male who is relatively healthy. He has had hypertension in the past but takes no medication at all at present. Sudden onset of shortness of breath yesterday and presented to [facility] emergency room. He describes intermittent sharp chest pains for the last few weeks that did not last but a few seconds. He is not experiencing this at present but it does hurt currently to take a deep breath and sometimes with movement. He is most comfortable lying on his right side. With evaluation in the emergency room he had a CT of the chest which showed no acute pulmonary embolism. He had bilateral densities in the left infrahilar region and posterior left lung base. Laboratory data showed a white blood cell count 11,600. Blood chemistries show normal electrolytes with a BUN of 13 and creatinine of 1. Blood sugar is 257. Troponin I's were 0.01. Lactate was elevated at 4 and 1 later repeated was 2.1. He was treated for sepsis and currently is receiving IV resuscitation. He has had a low-grade fever he has been tachycardic with a heart rate 132 and is 120 this a.m. he has received greater than 5000 mL of IV fluids since admission. Currently he feels he is breathing better. O2 sats are 93% on room air. He states he did sleep some. He did not fill like eating much this a.m. Hospital Course Hospital Course: The patient was admitted and started on Zithromax and Rocephin. Duo nebs were scheduled. The patient continued to run a fever of up to 103. He had some shortness of breath with any exertion but no cough. He did feel the duo nebs helped his breathing. A repeat chest x-ray was ordered and pulmonology was consulted. His chest x-ray showed persistent left basilar consolidation and some patchy right basilar atelectasis versus infiltrate. There was also a tiny right pleural effusion. He was seen by pulmonology who recommended continuing Rocephin but changing Zithromax to doxycycline. He ordered a strep pneumoniae and Legionella antigen as well as a urine histoplasma antigen, an MARCELO, and a CRP. The patient's white blood cell count improved. His upper respiratory panel was normal. The patient's CRP was elevated at 161. By 04/14/2021, he was feeling a little bit better. He still had some shortness of breath with any exertion. His blood cultures returned showing no growth. His blood pressure and heart rate were slightly elevated, but his fever had improved. He was unable to get a sputum sample. It was felt he was stable to be discharged home with close outpatient follow-up Objective Vital signs: Temp Pulse Resp BP Pulse Ox 99.1 F 133 H 18 162/81 H 94 L 04/14/21 08:00 04/14/21 08:00 04/14/21 08:00 04/14/21 08:00 04/14/21 08:00 Narrative: - Constitutional no acute distress - *Routine HEENT Exam Head: Present: normocephalic, atraumatic Eye: Present: PERRL. Absent: conjunctival icterus, scleral injection ENT: Present: mucous membranes moist, oropharynx clear - *Routine Neck Exam Present: supple. Absent: carotid bruit, lymphadenopathy, thyromegaly - *Routine Respiratory Exam Present: diminished air movement (In bases and in the right lower lobe.) - *Routine Cardiovascular Exam Present: RRR (Heart rate is 120/min), tachycardia - *Routine Abdominal Exam Present: soft, normoactive bowel sounds. Absent: tenderness, distended - *Routine Rectal Exam Rectal:: deferred - *Routine Genitalia Exam Genitalia:: deferred - *Routine Extremities Exam Present: pulses intact. Absent: edema, calf tenderness - *Routine Skin Exam Present: dry, warm - *Routine Neurological Exam Present: alert, oriented X3 Results Labs on day of discharge: Preliminary micro results at discharge 04/11/21 15:50 Blood Culture - Preliminary Blood NO GROWTH AFTE
[2021-04-18 11:36] LABS: Antinuclear Antibodies (ANA) NEGATIVE
== END 2021-04-14 10:21 | disposition home or self-care (01) ==
LOC: ER 19:10 → 2ND 19:25
PROVIDERS: Internal Medicine Pulmonary Disease; Admitting Provider Family Medicine; Emergency Provider Emergency Medicine; Visit Provider Family Medicine
DX: J96.01 Acute respiratory failure with hypoxia (principal); J18.9 Pneumonia, unspecified organism; E11.9 Type 2 diabetes mellitus without complications; I10 Essential (primary) hypertension; Z79.84 Long term (current) use of oral hypoglycemic drugs; Z91.19 Patient's noncompliance with other medical treatment and regimen
CPT/HCPCS: 36415; 71046; 71275; 74176; 80048; 80053; 82962; 83605; 83690; 84484; 85025; 86038; 86140; 87040; 87581; 87633; 87798; 93005; 94640; 96365; 96367; 96375; 99284; G0378; J0456; J2405; Q9967

== ENCOUNTER → 2021-04-19 12:11 | Outpatient (CLI) | payer OTHER, SELFPAY ==
--- NOTE | 2021-04-19 12:20 | XR_ITS ---
PROCEDURE: XR CHEST 2V CLINICAL HISTORY: PNEUMONIA COMPARISON: CT CT ANGIO CHEST from 04/11/2021 CR XR CHEST 2V from 04/13/2021 FINDINGS: Mild cardiomegaly without failure. Resolved right pleural effusion. There remains opacification in the left lung base consistent with pneumonia with small effusion. Consolidation appears worse compared to the previous exam. There are low lung volumes. No acute bony abnormalities. IMPRESSION: Worsening left lower lobe consolidation/pneumonia with small effusion Dictated by: Oneil Kohler MD 04/19/2021 12:41 Oneil Kohler MD in [place] 04/19/2021 12:41
== END ==
PROVIDERS: PCP Family Medicine; Visit Provider Family Medicine
DX: J18.9 Pneumonia, unspecified organism (principal)
CPT/HCPCS: 71046

== ENCOUNTER → 2021-04-26 12:14 | Outpatient (CLI) | payer OTHER, SELFPAY ==
--- NOTE | 2021-04-26 12:18 | XR_ITS ---
PROCEDURE: XR CHEST 2V CLINICAL HISTORY: COMMUNITY AQUIRED PNEUMONIA, UNSPECIFIED LATERALITY COMPARISON: CT CT ANGIO CHEST from 04/11/2021 CR XR CHEST 2V from 04/13/2021 CR XR CHEST 2V from 04/19/2021 FINDINGS: The cardiomediastinal silhouette and pulmonary vascularity are within normal limits. There remains increased density in the retrocardiac region on the left consistent with left lower lobe pneumonia with small medium-sized left effusion. These findings may be slightly improved. There is also some silhouetting out of the right hemidiaphragm laterally suggesting infiltrate in the right lung base laterally with small effusion. IMPRESSION: Persistent but slightly improved consolidation in the left lung base with small effusion. New area of silhouetting out of the right hemidiaphragm laterally which could be related to an underlying area infiltrate. Continued follow-up suggested Dictated by: Oneil Kohler MD 04/26/2021 12:55 Oneil Kohler MD in [place] 04/26/2021 12:55
== END ==
PROVIDERS: PCP Family Medicine; Visit Provider Family Medicine
DX: J18.9 Pneumonia, unspecified organism (principal)
CPT/HCPCS: 71046

== ENCOUNTER → 2021-05-14 12:47 | Outpatient (CLI) | payer OTHER, SELFPAY | PROVIDERS: PCP Family Medicine; Visit Provider Internal Medicine Pulmonary Disease | DX: R06.09 Other forms of dyspnea (principal) | CPT/HCPCS: 94060; 94618; 94726; 94729 ==

== ENCOUNTER → 2021-05-17 10:18 | Outpatient (CLI) | payer OTHER, SELFPAY ==
--- NOTE | 2021-05-17 10:23 | XR_ITS ---
PROCEDURE: XR CHEST 2V CLINICAL HISTORY: COMMUNITY ACQUIRED PNEUMONIA, UNSPECIFIED LATERALITY COMPARISON: CT CT ANGIO CHEST from 04/11/2021 CR XR CHEST 2V from 04/13/2021 CR XR CHEST 2V from 04/19/2021 CR XR CHEST 2V from 04/26/2021 FINDINGS: There is subsegmental infiltrate versus atelectasis in the left lower lobe. Possible trace left effusion. No other lobar consolidation, pleural effusions or pneumothorax. Cardiac size and central pulmonary vasculature within normal limits. Visualized osseous structures are unremarkable. IMPRESSION: Atelectasis versus infiltrate in the left lower zone. Small left effusion, marginally improved compared to the prior study. Dictated by: Rivka Booker 05/17/2021 13:55 Rivka Booker in [place] 05/17/2021 13:55
== END ==
PROVIDERS: PCP Family Medicine; Visit Provider Family Medicine
DX: J18.9 Pneumonia, unspecified organism (principal)
CPT/HCPCS: 71046

== ENCOUNTER → 2021-07-09 13:23 | Outpatient (CLI) | payer OTHER, SELFPAY ==
--- NOTE | 2021-07-09 13:28 | XR_ITS ---
PROCEDURE: XR CHEST 2V CLINICAL HISTORY: Effusion COMPARISON: CT CT ANGIO CHEST from 04/11/2021 CR XR CHEST 2V from 04/19/2021 CR XR CHEST 2V from 04/26/2021 CR XR CHEST 2V from 05/17/2021 FINDINGS: Unremarkable cardiovascular structures. The right is clear. There is some minimal pleural thickening in the left CP angle with minimal residual effusion showing improvement since the previous exam. IMPRESSION: Tiny left pleural effusion with minimal pleural thickening in the left lung base laterally. Dictated by: Oneil Kohler MD 07/09/2021 16:24 Oneil Kohler MD in [place] 07/09/2021 16:24
== END ==
PROVIDERS: PCP Family Medicine; Visit Provider Internal Medicine Pulmonary Disease
DX: J44.9 Chronic obstructive pulmonary disease, unspecified (principal)
CPT/HCPCS: 71046

== ENCOUNTER → 2021-08-02 14:54 | Outpatient (CLI) | payer OTHER, SELFPAY ==
[2021-08-02 15:40] VITALS: PULSE 95; PULSE 98
== END ==
PROVIDERS: PCP Family Medicine; Visit Provider Internal Medicine Pulmonary Disease
DX: R06.09 Other forms of dyspnea (principal)
CPT/HCPCS: 94060; 94640; 94727; 94729

== ENCOUNTER 2022-10-01 09:57 | Emergency (ER) | payer OTHER, SELFPAY ==
[2022-10-01 11:42] VITALS: BP 155/83; PULSE 95; RESP 16; TEMP 36.6; O2SAT 99; BMI 38.6
--- NOTE | 2022-10-01 11:42 | EXP.UTC ---
Discharge Plan Disposition Patient Disposition: Home, Self-Care Condition: Good Prescriptions Prescriptions: New nervidxb-cnbcslmcd-[id number] 3.5-10,000-1 mg/mL-unit/mL-% drops,suspension 4 drp Ear-Left Q8H 5 Days Qty: 10 0RF No Action levofloxacin 500 mg tablet 500 mg PO doxycycline hyclate 100 MG capsule 100 mg PO BID Qty: 14 0RF metoprolol tartrate 50 MG tablet 50 mg PO BID Qty: 60 0RF albuterol sulfate 8.5 GM HFA aerosol inhaler 18 gm IH Q6HP PRN (Reason: Shortness Of Breath Or Wheezing) Qty: 1 0RF cefdinir 300 MG capsule 300 mg PO BID Qty: 14 0RF metformin 500 MG tablet extended release 24 hr 500 mg PO BID Qty: 60 0RF Referrals Follow up/Referrals: Jax Herron MD [Primary Care Provider] - See instructions Activity Restrictions/Add. Instructions Additional Instructions/Restrictions: Finish the medications you are already on. Take tylenol or ibuprofen for pain. Use the ear drops as directed. Follow up with your regular doctor. GO TO THE ER FOR ANY WORSENING SYMPTOMS Clinical Impressions Clinical Impression: Cerumen impaction Instructions Patient Instructions: DI for Cerumen Impaction, Cerumen Impaction Discharge ED Provider: Josh Wright [facility] General Stated complaint: Stopped up left ear Time Seen by Provider: 10/01/22 11:42 History of Present Illness Provider Complaint: He is here with c/o left ear feeling stopped up and decreased hearing in that ear. Related Data Home Medications Medication Instructions Recorded Confirmed levofloxacin 500 mg tablet 500 mg PO 04/22/21 08/18/21 Previous Rx's Medication Instructions Recorded albuterol sulfate 90 mcg/actuation 18 gm IH Q6HP PRN Shortness Of 04/14/21 aerosol inhaler Breath Or Wheezing ##1 cefdinir 300 mg capsule 300 mg PO BID #14 caps 04/14/21 doxycycline hyclate 100 mg capsule 100 mg PO BID #14 caps 04/14/21 metformin 500 mg tablet,extended 500 mg PO BID ##60 04/14/21 release 24 hr metoprolol tartrate 50 mg tablet 50 mg PO BID #60 tabs 04/14/21 eakcytpc-xtrtuwvdi-dxkmscxar 3.5 4 drp Ear-Left Q8H 5 days #10 mL 10/01/22 mg-10,000 unit/mL-1 % ear drops,susp Allergies Allergy/AdvReac Type Severity Reaction Status Date / Time No Known Allergies Allergy Verified 10/01/22 11:45 [facility] Disclaimer: The information contained in this section may have been updated after the patient was seen, as this information can be updated by other users. Social History Smoking Status: Never smoker alcohol intake: never current occupational status: employed Travel in the last 8 weeks: None household members: spouse housing: house caffeine: No ROS Obtained: Yes All systems reviewed & no additional complaints except as documented Constitutional Constitutional: Denies chills and Denies fever(s) Eyes Eyes: Denies eye discharge ENT Ears, Nose, Mouth, and Throat: Reports as per HPI, Denies dizziness, Reports otalgia and Denies sore throat Cardiovascular Cardiovascular: Denies chest pain Respiratory Respiratory: Denies shortness of breath, Denies chest congestion, Denies cough, Denies stridor and Denies wheezing Gastrointestinal Gastrointestingal: Denies nausea or vomiting Musculoskeletal Musculoskeletal: Reports system reviewed and no additional complaints, except as documented and Denies arthralgias Integumentary/Breasts Skin/Breast: Denies rash Neurologic Neurologic: Denies dizziness and Denies paresthesias Allergic/Immunologic Allergic/Immunologic: Denies wheezing Physical Exam General General appearance: alert and in no apparent distress Head Head exam: atraumatic, normocephalic and normal inspection Eye Eye exam: Present normal appearance, PERRL and EOMI ENT ENT exam: Present normal oropharynx, mucous membranes moist, TM's normal bilaterally and normal external ear exam Expanded ENT Exam TM/Canal exam:
[2022-10-01 12:35] VITALS: BP 155/83; PULSE 95; RESP 16; TEMP 36.6
== END 2022-10-01 12:46 | disposition home or self-care (01) ==
PROVIDERS: Emergency Provider Nurse Practitioner Family; PCP Family Medicine
DX: H61.22 Impacted cerumen, left ear (principal); R06.02 Shortness of breath; Z79.51 Long term (current) use of inhaled steroids; Z79.84 Long term (current) use of oral hypoglycemic drugs; Z79.899 Other long term (current) drug therapy
CPT/HCPCS: 99213; G0463

== ENCOUNTER → 2023-03-07 09:21 | Outpatient (POV) | payer OTHER, SELFPAY | PROVIDERS: Visit Provider Dermatology | DX: Z00.00 Encounter for general adult medical examination without abnormal findings (principal) ==

== ENCOUNTER 2024-01-18 12:38 | Outpatient (CLI) | payer OTHER, SELFPAY ==
--- NOTE | 2024-01-18 12:44 | XR_ITS ---
FINAL REPORT CLINICAL HISTORY: SOA COMPARISON: 07/09/2021 FINDINGS: Two views of the chest were obtained. The heart size and pulmonary vascularity are within normal limits. The mediastinum is normal. No acute pulmonary abnormality is identified. There is no pneumothorax. Mild left pleural thickening is present, stable when compared to the prior exam of 2020. The bony thorax is intact. IMPRESSION: No active cardiopulmonary disease. Reviewed, Interpreted and Dictated by Abhishek Jimenez III, MD Transcribed by [employer] Authenticated and [facility]
== END 2024-01-18 23:59 ==
LOC: RAD 12:39
PROVIDERS: PCP Family Medicine; Visit Provider Physician Assistant
DX: R06.02 Shortness of breath (principal)
CPT/HCPCS: 71046